=== PATIENT | female | born 1995 | race Asian ===

== ENCOUNTER 2021-05-01 01:21 | Emergency (ER) | payer OTHER ==
[~2021-05-01] VITALS: Ht 160 cm; Wt 47.0 kg
[2021-05-01] MEDS ORDERED: NS 1,000 ML IV ONE (03:55)
[2021-05-01 04:19] LABS: BASO % 0.4 % (0.0-1.0); EOS % 0.1 % (0.0-3.0); HEMATOCRIT 37.9 % (36.0-47.0); HEMOGLOBIN 12.5 g/dl (12.0-15.5); LYMPH # 0.6 10^3/uL (1.5-5.0); LYMPH % 5.2 % (24.0-44.0); MEAN CORPUSCULAR HEMOGLOBIN 29.8 pg (27.0-33.0); MEAN CORPUSCULAR VOLUME 90.2 fl (80.0-96.0); MONO # 0.2 10^3/uL (0.0-0.8); MONO % 2.1 % (2.0-8.0); NEUTROPHILS # 9.9 10^3/uL (1.5-8.5); PLATELET COUNT, AUTOMATED 183 10^3/uL (150-450); WHITE BLOOD COUNT 10.7 10^3/uL (4.0-10.0)
[2021-05-01] MEDS ORDERED: cefTRIAXone SOD 2 GM in D5W MINI-BAG PLUS 50 ML IV ONE (04:40)
[2021-05-01] MEDS ORDERED: ONDANSETRON 4MG/2ML VIAL IV ONE (04:40)
[2021-05-01] MEDS ORDERED: MORPHINE 4 MG/ML 1ML VIAL/SYRINGE (J2270) IV PRN (04:40)
[2021-05-01 04:47] LABS: ALBUMIN 3.7 GM/DL (3.2-5.2); BILIRUBIN,DIRECT 0.3 MG/DL (0.0-0.2); BILIRUBIN,TOTAL 0.7 MG/DL (0.2-1.0); TOTAL PROTEIN 6.9 GM/DL (6.4-8.2)
[2021-05-01] MEDS: GASTROGRAFIN SOLUTION 30ML PO SCH ×2 (05:15→05:45)
[2021-05-01] MEDS ORDERED: ISOVUE-370 76% 100ML VIAL As Ordered ONE (06:13)
[2021-05-01] MEDS ORDERED: ACETAMINOPHEN TAB 650MG DOSE (2X325MG) PO ONE (06:45)
[2021-05-01 07:01] VITALS: BP 96/55
[2021-05-01] MEDS ORDERED: BACT800T5 PO (08:49)
== END 2021-05-01 09:06 | disposition home or self-care (01) ==
LOC: M ED 01:21
DX: N39.0 Urinary tract infection, site not specified (principal); N10 Acute pyelonephritis
CPT/HCPCS: 74177; 80047; 80076; 81001; 83690; 84702; 85025; 87040; 87088; 87186; 93041; 96361; 96365; 96366; 96375; 99284; J0696; J2270; J2405; Q9963; Q9967